=== PATIENT | male | born 1970 | race African-American/Black ===

== ENCOUNTER → 2016-12-22 | Emergency (ER) | payer SELFPAY ==
[~2016-12-22] VITALS: Ht 172.7 cm; Wt 77.1 kg
[~2016-12-22] MED LIST: ANTI-ITCH28 G1 TP; ATARAX25 MG ORAL; BENTYL10 MG ORAL; IBUPROFEN600 MG ORAL; LOMOTIL TABLET1 EACH PO; NORCO 5-325 TA1 EACH ORAL; ONDANSETRON ODT8 MG PO; PEPCID20 MG ORAL; PERMETHRIN60 GM TOPIC; PRILOSEC OTC20 MG ORAL; ROBAXIN-750750 MG PO; TRAMADOL HCL50 MG ORAL; ZANTAC150 MG ORAL; ZOFRAN4 MG ORAL
[2016-12-22 12:50] VITALS: BP 109/67
--- NOTE | 2016-12-22 13:38 | Emergency Room Report ---
History of Present Illness General Chief Complaint: Skin Rash/Abscess Source: Patient Present Illness HPI 46 YO Male presents to the ED c/o rash on stomach , left wrist and cheeks x 2 days. itching, and burning sensation. pt. states rash began on the stomach, then went to the wrist, and recently he had burning sensation across his face where he was wearing a mask. pt states the two rashes are different symptoms. Pt. denies new detergents/lotions/creams. pt. denies crusting. pt states the wrist and stomach are mainly itchy, while the rash due to the mask is a irritated burning in sensation. pt. denies recent travel or ill contacts. no fevers, chills abdominal pain, n/v or recent illness, no new medications. Denies CP, Palpitations, LOC, AMS, dizziness, Changes in Vision, Sensation, paresthesias, or a sudden severe headache. Allergies: Coded Allergies: No Known Allergies (Unverified , 01/17/13) Patient History Past Medical History: see triage record Past Surgical History: none Pertinent Family History: none Immunizations: UTD Reviewed Nursing Documentation: PMH: Agreed, PSxH: Agreed Nursing Documentation-PMH Past Medical History: No Stated History Hx Gastrointestinal Problems: Yes - Acid reflux Review of Systems All Other Systems: negative except mentioned in HPI Physical Exam Vital Signs Date Time Temp Pulse Resp B/P Pulse Ox O2 Delivery O2 Flow Rate FiO2 12/22/16 12:50 97.9 77 16 109/67 96 Room Air Sp02 EP Interpretation: reviewed, normal General Appearance: no apparent distress, alert, GCS 15, non-toxic Head: normocephalic, atraumatic Eyes: bilateral eye PERRL, bilateral eye normal inspection ENT: hearing grossly normal, normal pharynx, no angioedema, normal voice Neck: full range of motion, supple/symm/no masses Respiratory: chest non-tender, lungs clear, normal breath sounds, speaking full sentences Cardiovascular #1: regular rate, rhythm, no edema Gastrointestinal: non tender, soft, no guarding, no rebound, other - to anterior abdomen/ groin lines papular rash with a linear pattern and evidence of excoriations. Rectal: deferred Genitourinary: normal inspection, no CVA tenderness Musculoskeletal: back normal, gait/station normal, normal range of motion, non- tender, no calf tenderness Neurologic: alert, oriented x3, responsive, motor strength/tone normal, sensory intact, speech normal Psychiatric: judgement/insight normal, memory normal, mood/affect normal, no suicidal/homicidal ideation Skin: normal color, no rash, warm/dry, well hydrated, rash - TWO RASHES: blanching erythema, sensitivity of coalescent rash about the mouth and nose consistent with outline of a mask shape, in addition to papular rash with a linear pattern and evidence of excoriations to the left wrist and anterior abdomen/inguinal area. Lymphatic: no adenopathy Medical Decision Making PA Attestation Dr. Ma is my supervising Physician whom patient management has been discussed with. Diagnostic Impression: Primary Impression: Rash and other nonspecific skin eruption Additional Impression: Scabies ER Course 46 YO Male presents to the ED c/o rash on stomach , left wrist and cheeks x 2 days. itching, and burning sensation. pt. states rash began on the stomach, then went to the wrist, and recently he had burning sensation across his face where he was wearing a mask. pt states the two rashes are different symptoms. Ddx considered but are not limited to cellulitis, scabies, shingles, varicella, dermatitis, urticaria, eczema, tinea Vital signs: are WNL, pt. is afebrile H&PE are most consistent with contact dermatitis of the face and rash of the wrist and abdomen is suspicious for scabies due to papular linear appearance. ORDERS: none required at this time, the diagnosis is clinical ED INTERVENTIONS: None required at this time. DISCHARGE: At this time pt. is stable for d/c to home. Will provide printed patient care instructions, and any necessary prescriptions. Care plan and follow up instructions have been discussed with the patient prior to discharge. Last Vital Signs Date Time Temp Pulse Resp B/P Pulse Ox O2 Delivery O2 Flow Rate FiO2 12/22/16 12:50 97.9 77 16 109/67 96 Room Air Disposition: HOME, SELF-CARE Condition: Stable Scripts Hydrocortisone 2% Cream (ANTI-ITCH 2% CREAM) Y Cr 1 APPLIC TP BID, #28.4 GM Prov: Rowan Hernandez 12/22/16 Hydroxyzine HCl (Hydroxyzine HCl) 25 Mg Tablet 25 MG ORAL FOUR TIMES A DAY for 7 Days, #30 TAB Prov: Rowan Hernandez 12/22/16 Permethrin* (ELIMITE*) 60 Gm Cream..g. 1 APPLIC TOPIC ONCE, #60 GM 1 Refill Apply cream from head to toe; leave on for 8-14 hours before washing off with water; may reapply in 1 week if live mites appear. Prov: Rowan Hernandez 12/22/16 Departure Forms: Return to Work Return to Work Date: Dec 25, 2016 Work Restrictions: None Return to Full Activity: Dec 25, 2016 Patient Instructions: Rash, Scabies, Pediatric Additional Instructions: Take medications as directed. Follow up with PCP in 3-5 days Return sooner to ED if new symptoms occur, or current symptoms become worse. Do not drink alcohol, drive, or operate heavy machinery while taking hydroxyzine as this may cause drowsiness. - Please note that this Emergency Department Report was dictated using [email or web address] automatic technology software, occasionally this can lead to erroneous entry secondary to interpretation by the dictation equipment. Rowan Hernandez Dec 22, 2016 13:38
[2016-12-22 13:58] VITALS: BP 109/67
== END | disposition home or self-care (01) ==
LOC: EMR 13:42
DX: B86 Scabies (principal)
CPT/HCPCS: 99284

== ENCOUNTER 2017-07-07 06:52 | Emergency (ER) | payer MEDICAID ==
[~2017-07-07] VITALS: Ht 170.2 cm; Wt 74.8 kg
[2017-07-07] MEDS ORDERED: IBUPROFEN600 MG ORAL (07:16)
--- NOTE | 2017-07-07 07:29 | Emergency Room Report ---
History of Present Illness General Chief Complaint: Skin Rash/Abscess Source: Patient Present Illness HPI This 47-year-old male who presented after increased pain and swelling to the area near his buttock. Patient denied past medical history. He denied recent fevers. He had gradual onset of worsening swelling. This had been present for approximately 5 days. This had gradual increased in size. Patient denied any prior history of diabetes or immunocompromise. He states he takes no medications other than ibuprofen. Allergies: Coded Allergies: No Known Allergies (Unverified , 01/17/13) Patient History Past Medical History: see triage record Reviewed Nursing Documentation: PMH: Agreed, PSxH: Agreed Nursing Documentation-PMH Past Medical History: No Stated History Hx Gastrointestinal Problems: Yes - Acid reflux Review of Systems All Other Systems: limited Physical Exam Vital Signs Date Time Temp Pulse Resp B/P (MAP) Pulse Ox O2 Delivery O2 Flow Rate FiO2 07/07/17 07:13 98.1 69 17 100/67 99 Room Air General Appearance: well appearing, no apparent distress, alert, GCS 15, non- toxic Head: normocephalic, atraumatic ENT: hearing grossly normal, normal voice Neck: full range of motion, supple Respiratory: no respiratory distress, speaking full sentences Cardiovascular #1: normal peripheral pulses, regular rate, rhythm, no edema Gastrointestinal: non tender, soft Rectal: other - fluctuance near right buttock Musculoskeletal: no calf tenderness Neurologic: normal inspection, alert, oriented x3, responsive, 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 Differential diagnosis included was not limited to abscess, cellulitis, folliculitis, Fourniere's gangrene. Patient's benign exam and does not appear to require any further imaging or laboratory testing at this time. The patient was noted to have what appear to be an abscess to his right buttock. The patient does not appear to be septic at this time. Patient was verbally consented incision and drainage was performed with drainage of approximately 3 mL of purulent material. Bacitracin was applied. Patient is advised to followup in the next 2 -3 days for wound check. Patient is advised to return if any worsening condition or if any changes in status that are concerning. Last Vital Signs Date Time Temp Pulse Resp B/P (MAP) Pulse Ox O2 Delivery O2 Flow Rate FiO2 07/07/17 07:13 98.1 69 17 100/67 99 Room Air Status: improved Disposition: HOME, SELF-CARE Condition: Stable Scripts Trimethoprim/Sulfamethoxazole 160/800* (BACTRIM DS TABLET*) 1 Each Tablet 1 TAB ORAL TWICE A DAY, #14 TAB Prov: Isaias Melvin 07/07/17 Referrals: NOT CHOSEN HEBERT/,REFERRING (PCP) Isaias Melvin Jul 07, 2017 07:29
[2017-07-07] MEDS ORDERED: Lidocaine/Epinephrine 2% 20 ML VIAL INJ ONE (07:30)
[2017-07-07] MEDS ORDERED: BACTRIM DS TAB1 EAC1 ORAL (07:46)
[2017-07-07] MEDS ORDERED: Bacitracin Oint UD TOPIC ONE (08:00)
[2017-07-07 08:05] VITALS: BP 100/67
[2017-07-07 08:07] VITALS: BP 100/67
== END 2017-07-07 08:08 | disposition home or self-care (01) ==
LOC: EMR 07:27
DX: L02.31 Cutaneous abscess of buttock (principal); K21.9 Gastro-esophageal reflux disease without esophagitis
CPT/HCPCS: 10060; 82962; 99283

== ENCOUNTER 2017-10-18 07:45 | Emergency (ER) | payer MEDICAID ==
[~2017-10-18] VITALS: Ht 170.2 cm; Wt 74.8 kg
[~2017-10-18 07:45] MED LIST changes: +BACTRIM DS TAB1 EAC1 ORAL
[2017-10-18] MEDS ORDERED: NKM (07:58)
[2017-10-18 08:01] VITALS: BP 117/71
[2017-10-18] MEDS ORDERED: BACTRIM DS TAB1 EAC1 ORAL (08:04)
[2017-10-18] MEDS ORDERED: KEFLEX500 MG ORAL (08:04)
[2017-10-18 08:13] VITALS: BP 117/71
--- NOTE | 2017-10-18 08:34 | Emergency Room Report ---
History of Present Illness General Chief Complaint: Skin Rash/Abscess Source: Patient, Medical Record Present Illness HPI 47-year-old male presents ED for evaluation. Patient states he's noticed "cysts " under both armpits and to his groin area. Noticed it yesterday. Pain is throbbing, 6/10, nonradiating. Denies any discharge. States he's had "cysts" before which required drainage and antibiotics. Denies any fevers or chills. No other aggravating or leading factors. Denies any other says the symptoms Allergies: Coded Allergies: No Known Allergies (Unverified , 01/17/13) Patient History Past Medical History: GERD Past Surgical History: none Pertinent Family History: none Social History: Denies: smoking, alcohol use, drug use Immunizations: UTD Reviewed Nursing Documentation: PMH: Agreed, PSxH: Agreed Nursing Documentation-PMH Past Medical History: No History, Except For Hx Gastrointestinal Problems: Yes - Acid refux Review of Systems All Other Systems: negative except mentioned in HPI Physical Exam Vital Signs Date Time Temp Pulse Resp B/P (MAP) Pulse Ox O2 Delivery O2 Flow Rate FiO2 10/18/17 07:55 97.9 86 18 117/71 98 Room Air Sp02 EP Interpretation: reviewed, normal General Appearance: no apparent distress, alert, GCS 15, non-toxic Head: normocephalic Eyes: bilateral eye normal inspection, bilateral eye PERRL ENT: normal ENT inspection Neck: normal inspection Respiratory: normal inspection Cardiovascular #1: normal inspection Gastrointestinal: normal inspection Rectal: deferred Genitourinary: no CVA tenderness Musculoskeletal: normal inspection Neurologic: alert, oriented x3, responsive, motor strength/tone normal, sensory intact, speech normal Psychiatric: normal inspection Skin: other - 1cm area of induration/erythema to bilateral axilla. no fluctuance or discharge. 1cm area of induration/erythema to L scrotum. no discharge Lymphatic: normal inspection Medical Decision Making Diagnostic Impression: Primary Impression: Abscess ER Course Hospital Course 47-year-old male presents to ED with redness, swelling to bilateral axilla, L scrotum Differential diagnoses include: Cellulitis, dermatitis, insect bite, abscess Clinical course Patient placed on stretcher. After initial history, physical exam reveals a male in no acute distress. On exam there is a site for mild erythema and induration to the bilateral axilla, L scrotum. There is no fluctuance. There is no tenderness. No discharge. No indication for incision and drainage at this time. Recommend warm compresses and antibiotics Diagnosis - abscess stable and discharged to home with prescription for Benadryl, Keflex. Instructed to followup with PMD. Instructed return to ED if symptoms recur or worsen Last Vital Signs Date Time Temp Pulse Resp B/P (MAP) Pulse Ox O2 Delivery O2 Flow Rate FiO2 10/18/17 08:13 97.9 80 18 117/71 98 Room Air Status: improved Disposition: HOME, SELF-CARE Condition: Stable Scripts Trimethoprim/Sulfamethoxazole 160/800* (BACTRIM DS TABLET*) 1 Each Tablet 1 TAB ORAL Q12H, #14 TAB 0 Refills Prov: FRANCIS COTA M.D. 10/18/17 Cephalexin* (KEFLEX*) 500 Mg Capsule 500 MG ORAL Q6H, #28 CAP 0 Refills Prov: FRANCIS COTA M.D. 10/18/17 Patient Instructions: Abscess FRANCIS COTA M.D. Oct 18, 2017 08:34
== END 2017-10-18 08:15 | disposition home or self-care (01) ==
LOC: EMR 08:02
DX: L02.412 Cutaneous abscess of left axilla (principal); L02.411 Cutaneous abscess of right axilla; K21.9 Gastro-esophageal reflux disease without esophagitis
CPT/HCPCS: 99283

== ENCOUNTER 2017-10-21 21:19 | Emergency (ER) | payer MEDICAID ==
[~2017-10-21] VITALS: Ht 170.2 cm; Wt 74.8 kg
[~2017-10-21 21:19] MED LIST changes: +KEFLEX500 MG ORAL; +NKM
[2017-10-21 21:30] VITALS: BP 115/72
[2017-10-21] MEDS ORDERED: Norco 5mg/325mg tab ORAL ONE (21:45)
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
[2017-10-21 22:35] VITALS: BP 120/78
[2017-10-21] MEDS ORDERED: ANAPROX DS550 MG PO (22:41)
[2017-10-21 22:45] VITALS: BP 120/78
--- NOTE | 2017-10-22 08:44 | Diagnostic Imaging Report ---
Indication: Trauma Technique: CT maxillofacial was performed utilizing automated exposure control without intravenous contrast material. Axial and coronal images were generated. CT dose: Total DLP 592.94 mGycm; CTDI vol 28.19 mGy Comparison: Correlation made to CT of the head 10/25/2016 Findings: There is slight irregularity with depression of the distal tip of the nasal bones suggesting nasal bone fracture age indeterminate. No additional fractures identified. The orbits are unremarkable. Paranasal sinuses and mastoid air cells are clear. The nasal septum is midline. Visualized intracranial compartment is unremarkable. Impression: Slight irregularity and depression of the distal tip of the nasal bones suggesting nasal bone fracture of indeterminate age. Correlate clinically. No additional fractures identified. This corresponds with the statrad preliminary report. The CT scanner at [facility] is accredited by the [employer] and the scans are performed using protocols designed to limit radiation exposure to as low as reasonably achievable to attain images of sufficient resolution adequate for diagnostic evaluation.
== END 2017-10-21 22:45 | disposition home or self-care (01) ==
LOC: EMR 21:32
DX: S01.511A Laceration without foreign body of lip, initial encounter (principal); S00.83XA Contusion of other part of head, initial encounter; Y04.2XXA Assault by strike against or bumped into by another person, initial encounter; Y92.410 Unspecified street and highway as the place of occurrence of the external cause
CPT/HCPCS: 12011; 70486; 99284; Z7502

== ENCOUNTER 2020-09-11 09:03 | Emergency (ER) | payer MEDICAID ==
[~2020-09-11] VITALS: Ht 172.7 cm; Wt 72.6 kg
[~2020-09-11 09:03] MED LIST changes: +ANAPROX DS550 MG PO; +IBUPROFEN600 M1 ORAL
--- NOTE | 2020-09-11 09:27 | Emergency Room Report ---
History of Present Illness General Chief Complaint: Abdominal Pain Source: Patient Present Illness HPI Disclaimer: Please note that this report is being documented using DRAGON technology. This can lead to erroneous entry secondary to incorrect interpretation by the dictating instrument. HPI: 50-year-old male presents for evaluation of multiple complaints. He is complaining of sore throat and nasal congestion for several days. Denies postnasal drip, stridor, throat swelling sensation. Denies fever, chills. Reports fatigue. No recent COVID-19 swab test. Denies chest pain, shortness of breath or cough. He reports constipation but continues to pass gas for several days. Reports tenderness in the left lower quadrant. Denies diarrhea. Also complaining of penile discharge of several days duration. Thick white/yellow discharge. Denies pain in the testicles. Reports recent sexual intercourse though states he was using barrier contraception. Denies prior history of STI. No exacerbating or relieving factors. Has not taken any medication prior to arrival. 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 EOMI. uvula midline, no edema. Mild erythema. No exudate. Tonsils are 1+ nonobstructing. No submandibular lymphadenopathy. Cardiovascular: RRR. S1 and S2 normal. No murmur appreciated Resp: Normal work of breathing. No cough, wheezing or crackles appreciated Abdomen: Abdomen is soft, nondistended. Tender to palpation in the left lower quadrant. No masses. No guarding, no rebound or Valera's tenderness. : Uncircumcised male. Testes anatomic position. Testicles are nontender, no edema, no masses in the scrotum. No defect in the abdominal or inguinal wall. There is a thick white discharge coming from the urethra. No ulcerations or vesicles rash or other skin lesions found on the penis. Skin: Intact. No abrasions, laceration or rash over the exposed skin MSK: Normal tone and bulk. Moving all extremities. No obvious deformity. Neuro: Awake and alert. Mentating appropriately. Medical Decision Making Diagnostic Impression: Primary Impression: Urethritis Additional Impressions: UTI (urinary tract infection) Substance abuse ER Course 50-year-old male presenting for evaluation of abdominal discomfort, constipation, penile discharge. Concern for STI, urethritis, UTI, constipation, obstruction, viral syndrome. Labs were obtained and returned mostly within normal limits. Slight elevation in WBC at 12.0 without a neutrophil predominance. Patient is afebrile. Chemistry within normal limits, lipase within normal limits as are LFTs. Patient tested positive for amphetamines and THC which she has in the past and admits use now. Urinalysis shows 3+ leukocyte esterase and WBCs but only occasional bacteria. Concern for urethritis given his sexual contact and treated with ceftriaxone azithromycin. Will refer to outpatient STI testing. Will start patient on bowel cleanout of MiraLAX and docusate to encourage normal bowel movements. No evidence of obstruction on abdominal x-ray. Will refer to PMD and substance abuse centers as well given his amphetamine use. Instructed on proper follow-up. Discussed reasons to return to the emergency department. He understands and agrees with this treatment plan. Laboratory Tests Test 09/11/20 09:32 09/11/20 09:42 White Blood Count 12.0 K/UL (4.8-10.8) H Red Blood Count 4.71 M/UL (4.70-6.10) Hemoglobin 15.0 G/DL (14.2-18.0) Hematocrit 45.6 % (42.0-52.0) Mean Corpuscular Volume 97 FL (80-99) Mean Corpuscular Hemoglobin 31.7 PG (27.0-31.0) H Mean Corpuscular Hemoglobin Concent 32.8 G/DL (32.0-36.0) Red Cell Distribution Width 11.5 % (11.6-14.8) L Platelet Count 223 K/UL (150-450) Mean Platelet Volume 6.2 FL (6.5-10.1) L Neutrophils (%) (Auto) 71.4 % (45.0-75.0) Lymphocytes (%) (Auto) 14.8 % (20.0-45.0) L Monocytes (%) (Auto) 11.0 % (1.0-10.0) H Eosinophils (%) (Auto) 2.1 % (0.0-3.0) Basophils (%) (Auto) 0.6 % (0.0-2.0) Sodium Level 136 MMOL/L (136-145) Potassium Level 3.7 MMOL/L (3.5-5.1) Chloride Level 100 MMOL/L (98-107) Carbon Dioxide Level 31 MMOL/L (21-32) Anion Gap 5 mmol/L (5-15) Blood Urea Nitrogen 7 mg/dL (7-18) Creatinine 1.0 MG/DL (0.55-1.30) Estimated Glomerular Filtration Rate > 60 mL/min (>60) Glucose Level 93 MG/DL (74-106) Calcium Level 8.4 MG/DL (8.5-10.1) L Total Bilirubin 0.2 MG/DL (0.2-1.0) Aspartate Amino Transferase (AST) 31 U/L (15-37) Alanine Aminotransferase (ALT) 55 U/L (12-78) Alkaline Phosphatase 78 U/L (46-116) Total Protein 7.3 G/DL (6.4-8.2) Albumin 3.2 G/DL (3.4-5.0) L Globulin 4.1 g/dL Albumin/Globulin Ratio 0.8 (1.0-2.7) L Lipase 121 U/L (73-393) Urine Color Pale yellow Urine Appearance Slightly cloudy Urine pH 6 (4.5-8.0) Urine Specific [place] 1.010 (1.005-1.035) Urine Protein Negative (NEGATIVE) Urine Glucose (UA) Negative (NEGATIVE) Urine Ketones Negative (NEGATIVE) Urine Blood 1+ (NEGATIVE) H Urine Nitrite Negative (NEGATIVE) Urine Bilirubin Negative (NEGATIVE) Urine Urobilinogen Normal MG/DL (0.0-1.0) Urine Leukocyte Esterase 3+ (NEGATIVE) H Urine RBC 0-2 /HPF (0 - 0) H Urine WBC 60-80 /HPF (0 - 0) H Urine Squamous Epithelial Cells Occasional /LPF Urine Bacteria Occasional /HPF (NONE) Urine Opiates Screen Negative (NEGATIVE) Urine Barbiturates Screen Negative (NEGATIVE) Phencyclidine (PCP) Screen Negative (NEGATIVE) Urine Amphetamines Screen Positive (NEGATIVE) H Urine Benzodiazepines Screen Negative (NEGATIVE) Urine Cocaine Screen Negative (NEGATIVE) Urine Marijuana (THC) Screen Positive (NEGATIVE) H Last Vital Signs Date Time Temp Pulse Resp B/P (MAP) Pulse Ox O2 Delivery O2 Flow Rate FiO2 09/11/20 09:13 98.8 100 20 133/83 (100) 99 Room Air Disposition: HOME, SELF-CARE Condition: Stable Scripts Cephalexin* (KEFLEX*) 500 Mg Capsule 500 MG ORAL EVERY 12 HOURS for 7 Days, #14 CAP 0 Refills Prov: Vinny Elizabeth MD 09/11/20 Polyethylene Glycol 3350* (MIRALAX*) 17 Gm Powd.pack 17 GM ORAL BID for 3 Days, #20 PACKET Prov: Vinny Elizabeth MD 09/11/20 Docusate Sodium* (DOCUSATE SODIUM*) 100 Mg Capsule 200 MG ORAL TWICE A DAY for 7 Days, #20 CAP Prov: Vinny Elizabeth MD 09/11/20 Referrals: NOT CHOSEN IPA/,REFERRING (PCP) Vinny Elizabeth MD Sep 11, 2020 09:27
[2020-09-11 09:30] VITALS: BP 133/83
[2020-09-11] MEDS ORDERED: Azithromycin 250mg tab ORAL ONE (09:30)
[2020-09-11] MEDS ORDERED: Lidocaine 1% MPF 10mg/ml 5ml INJ ONE (09:30)
--- NOTE | 2020-09-11 09:35 | NUR ---
ED Nurse Note: Patient walked in to ER c/o constipation, abdominal pain, male urogenital problems, and sore throat. Patient AAO x4, VSS at this time.
--- NOTE | 2020-09-11 09:36 | NUR ---
ED Nurse Note: IV line was established on left AC 20ga, blood collected sent to lab
[2020-09-11 09:42] LABS: BASOPHILS % (AUTO) 0.6 % (0.0-2.0); EOSINOPHILS % (AUTO) 2.1 % (0.0-3.0); HEMATOCRIT 45.6 % (42.0-52.0); LYMPHOCYTES % (AUTO) 14.8 % (20.0-45.0); MEAN CORPUSCULAR VOLUME 97 FL (80-99); NEUTROPHILS % (AUTO) 71.4 % (45.0-75.0); PLATELET COUNT 223 K/UL (150-450); RED BLOOD COUNT 4.71 M/UL (4.70-6.10); RED CELL DISTRIBUTION WIDTH 11.5 % (11.6-14.8)
[2020-09-11 09:51] LABS: APPEARANCE,URINE SLIGHTLY CLOUDY; BILIRUBIN, URINE NEGATIVE (NEGATIVE); COLOR,URINE PALE YELLOW; GLUCOSE, URINE (UA) NEGATIVE (NEGATIVE); KETONES,URINE NEGATIVE (NEGATIVE); LEUKOCYTE ESTERASE ,URINE 3+ (NEGATIVE); NITRITE,URINE NEGATIVE (NEGATIVE); PH,URINE 6 (4.5-8.0); PROTEIN,URINE NEGATIVE (NEGATIVE); UROBILINOGEN,URINE NORMAL MG/DL (0.0-1.0)
[2020-09-11 09:56] LABS: ANION GAP 5 mmol/L (5-15); BLOOD UREA NITROGEN 7 mg/dL (7-18); CALCIUM 8.4 MG/DL (8.5-10.1); CARBON DIOXIDE 31 MMOL/L (21-32); CHLORIDE 100 MMOL/L (98-107); POTASSIUM 3.7 MMOL/L (3.5-5.1); SODIUM 136 MMOL/L (136-145)
[2020-09-11 10:01] LABS: ALANINE AMINOTRANSFERASE 55 U/L (12-78); ALBUMIN 3.2 G/DL (3.4-5.0); ALBUMIN/GLOBULIN RATIO 0.8 (1.0-2.7); ALKALINE PHOSPHATASE 78 U/L (46-116); ASPARTATE AMINO TRANSFERASE 31 U/L (15-37); BILIRUBIN,TOTAL 0.2 MG/DL (0.2-1.0)
[2020-09-11] MEDS ORDERED: MIRALAX17 G2 ORAL (10:16)
[2020-09-11] MEDS ORDERED: CEPHALEXIN500 MG ORAL (10:16)
[2020-09-11] MEDS ORDERED: DOCUSATE SODIU100 MG ORAL (10:16)
[2020-09-11 10:55] VITALS: BP 133/83
--- NOTE | 2020-09-11 10:55 | NUR ---
ER DISCHARGE NOTE: Patient is cleared to be discharged per ERMD, pt is aox4, on room air, with stable vital signs. pt was given dc and prescription instructions, pt was able to verbalize understanding, pt id band and iv site removed without complications. pt is able to ambulate with steady gait. pt took all belongings.
--- NOTE | 2020-09-11 12:31 | Diagnostic Imaging Report ---
Indication: Abdominal pain Technique: XRAY Abdomen 1v Comparison: None Findings: Bowel gas pattern is nonobstructive. There is mild retained colonic stool. No acute osseous or moderate. There are degenerative changes in the spine. Imaged lung bases grossly clear. No radiopaque foreign body. IMPRESSION: Nonobstructive bowel gas pattern. More sensitive evaluation can be made with CT as clinically indicated.
== END 2020-09-11 10:56 | disposition home or self-care (01) ==
LOC: EMR 09:22
DX: N34.2 Other urethritis (principal); F15.10 Other stimulant abuse, uncomplicated; F12.10 Cannabis abuse, uncomplicated
CPT/HCPCS: 36415; 74018; 80053; 80307; 81003; 83690; 85025; 87086; 96372; J0696; Q0144; Z7502; 99283